=== PATIENT | female | born 1960 | race Caucasian/White ===

== ENCOUNTER 2025-02-05 09:33 | Emergency (ER) | payer SELFPAY ==
[2025-02-05 09:46] VITALS: BP 152/68; PULSE 63; RESP 18; TEMP 37; O2SAT 99
[2025-02-05 11:04] LABS: EDUAAPPEAR Cloudy; EDUABILI Negative (Negative); EDUABLOOD 1+ (Negative); EDUACOLOR1 Dark; EDUAGLUCOSE Negative (Negative); EDUAKETONE Negative (Negative); EDUALEUKO 1+ (Negative); EDUANITRATE Negative (Negative); EDUAPH 6.5; EDUAPROTEIN 1+ (Negative); EDUASPGRAVITY 1.020; EDUAUROBILI 1.0
--- NOTE | 2025-02-05 11:22 | ED.GENADULT ---
HPI - General Adult General Chief complaint: Urogenital-Female Stated complaint: UTI Source: patient Mode of arrival: ambulatory Limitations: no limitations History of Present Illness HPI narrative: Patient presents for evaluation of urinary symptoms. Family member here with her today indicates that patient's son had reported she was having episodes of incontinence for several days. Patient then told her family member present in the room today that she has experienced some dysuria. She denies fever, abdominal pain, low back pain, other urinary symptoms. Family member states that patient seems slightly confused from that of her baseline. She has a suspicion the patient has dementia, but it sounds like she never received a formal diagnosis of this. Related Data Allergies Allergy/AdvReac Type Severity Reaction Status Date / Time codeine Allergy Unknown Unknown Verified 02/05/25 11:19 Review of Systems Review of Systems: CONSTITUTIONAL: Denies fever, chills, or sweats. EYES: Denies visual changes, redness, or discharge. ENT: Denies rhinorrhea, congestion, sore throat, or otalgia. CARDIOVASCULAR: Denies chest pain, palpitations, or edema. RESPIRATORY: Denies cough or dyspnea. GASTROINTESTINAL: Denies abdominal pain, nausea, vomiting, or diarrhea. GENITOURINARY: Reports dysuria and episodes of urinary incontinence. SKIN: Denies rash or itching. MUSCULOSKELETAL: Denies back pain, joint pain, or myalgia. NEUROLOGIC: Denies headache, numbness, dizziness, or weakness. PSYCHIATRIC: Denies anxiety or depression. PMFSH Past Medical History Medical History Hyperlipidemia Surgical History Surgical History Surgical history unknown Family History Family History Mother Medical history non-contributory Social History Social History Living arrangements: with family Gender identity (if verbalized by the patient): Female Sexual Orientation (if Verbalized by the Patient): Straight or Heterosexual Spiritual care concerns: No Exam Narrative: GENERAL: Well-appearing, well-nourished, and in no acute distress. HEAD: Normocephalic, atraumatic. EYES: PERRLA and EOMI. ENT: Nares clear, no rhinorrhea or epistaxis. Mucous membranes moist. Oropharynx without tonsillar hypertrophy exudate or other lesions. Bilateral TMs pearly redding nonbulging NECK: Supple. No adenopathy or masses. No carotid bruits or JVD CHEST: Clear to auscultation. No respiratory distress. No wheezes rales or rhonchi HEART: Regular rate and rhythm. No murmur heard. Normal peripheral pulses. ABDOMEN: Soft, nontender, nondistended, normal active bowel sounds. EXTREMITIES: Normal range of motion. No edema. SKIN: Warm, dry, no rash. NEURO: No focal deficits. Alert and oriented x3 however exhibits some signs of being slightly confused PSYCH: Normal mood and affect. Course Course Emergency Course: this is a 64-year-old female who presented for evaluation of urinary symptoms. She has leukocytes in her urine today. Will send urine culture. Discharge with cephalexin. Family member will be in company to help monitor her at home. She should follow-up with her primary care provider. She should go to the ER for worsening symptoms. Pt and family member in agreement with plan of care. Level of Care: Express Care Visit Vital Signs Vital signs: Vital Signs Temperature 37.0 C 02/05/25 09:46 Pulse Rate 63 02/05/25 09:46 Respiratory Rate 18 02/05/25 09:46 Blood Pressure 152/68 H 02/05/25 09:46 Pulse Oximetry 99 02/05/25 09:46 Oxygen Delivery Room Air 02/05/25 09:46 Temperature 37.0 C 02/05/25 09:46 Pulse Rate 63 02/05/25 09:46 Respiratory Rate 18 02/05/25 09:46 Blood Pressure 152/68 H 02/05/25 09:46 Pulse Oximetry 99 02/05/25 09:46 Oxygen Delivery Room Air 02/05/25 09:46 Medical Decision Making Vital Signs Vital Signs: Vital Signs Temperature 37.0 C 02/05/25 09:46 Pulse Rate 63 02/05/25 09:46 Respiratory Rate 18 02/05/25 09:46 Blood Pressure 152/68 H 02/05/25 09:46 Pulse Oximetry 99 02/05/25 09:46 Oxygen Delivery Room Air 02/05/25 09:46 Temperature 37.0 C 02/05/25 09:46 Pulse Rate 63 02/05/25 09:46 Respiratory Rate 18 02/05/25 09:46 Blood Pressure 152/68 H 02/05/25 09:46 Pulse Oximetry 99 02/05/25 09:46 Oxygen Delivery Room Air 02/05/25 09:46 Lab Data Labs: Lab Results 02/05/25 Range/Units 11:02 POC Urine Color Dark POC Urine Clarity Cloudy POC Urine pH 6.5 POC Ur Specif [place] 1.020 POC Urine Protein 1+ (Negative) POC Ur Glucose (UA) Negative (Negative) POC Urine Ketones Negative (Negative) POC Urine Blood 1+ (Negative) POC Urine Nitrite Negative (Negative) POC Urine Bilirubin Negative (Negative) POC Urine Urobilinogen 1.0 POC U Leukocyte Esteras 1+ (Negative) Discharge Plan Discharge Clinical Impression: Acute UTI Patient Disposition: Home Condition: Stable Instructions: Antibiotic Form, Urinary Tract Infection in Women (ED) Patient Language: Swedish Prescriptions: New cephalexin 500 mg capsule 500 mg PO Q12H Qty: 14 0RF Follow-up/Referrals: Bronson Enamorado MD [Physician] - Time of Disposition: 11:20
== END 2025-02-05 11:27 | disposition home or self-care (01) ==
PROVIDERS: Emergency Provider Nurse Practitioner
DX: N39.0 Urinary tract infection, site not specified (principal); E78.5 Hyperlipidemia, unspecified
CPT/HCPCS: 81003; 87086; 99203; G0463